=== PATIENT | female | born 1960 | race Hispanic/Latino ===

== ENCOUNTER → 2018-06-26 | Outpatient (CLI) | payer OTHER | END | disposition home or self-care (01) | LOC: OIH 16:16 | PROVIDERS: ATTEND Family Medicine | DX: M47.816 Spondylosis without myelopathy or radiculopathy, lumbar region (principal); M17.11 Unilateral primary osteoarthritis, right knee; E11.9 Type 2 diabetes mellitus without complications | CPT/HCPCS: 72100; 73560 ==

== ENCOUNTER → 2022-05-05 | Outpatient (CLI) | payer OTHER | END | disposition home or self-care (01) | LOC: RAH 14:13 | PROVIDERS: ATTEND Internal Medicine | DX: R09.89 Other specified symptoms and signs involving the circulatory and respiratory systems (principal) | CPT/HCPCS: 93925 ==